=== PATIENT | female | born 1990 | race Caucasian/White ===

== ENCOUNTER → 2022-07-02 | Outpatient (CLI) | payer OTHER | LOC: LAB 16:39 | DX: R30.0 Dysuria (principal); N39.0 Urinary tract infection, site not specified ==

== ENCOUNTER → 2022-07-23 | Outpatient (CLI) | payer OTHER ==
[2022-07-23 09:54] LABS: BASO # 0.02 K/mm3 (0.02-0.10); EOS # 0.24 K/mm3 (0.04-0.40); EOS % 2.1 % (1.0-5.0); HEMATOCRIT 37.7 % (37.0-47.0); HEMOGLOBIN 12.9 g/dL (12.5-16.0); MEAN CELL VOLUME 88 fl (78-100); MEAN CORPUSCULAR HEMOGLOBIN 30 pg (27-31); MEAN CORPUSCULAR HGB CONC 34 g/dL (33-37); MEAN PLATELET VOLUME 9.8 fl (7.4-10.4); MONO # 0.79 K/mm3 (0.20-0.80); NEU # 9.04 K/mm3 (1.40-6.50); PLATELET COUNT 147 K/mm3 (130-400); RED BLOOD COUNT 4.28 M/mm3 (4.10-5.30); RED CELL DISTRIBUTION WIDTH 11.7 % (11.5-14.5); WHITE BLOOD COUNT 11.6 K/mm3 (4.8-10.8)
[2022-07-23 10:05] LABS: ALBUMIN 3.8 g/dL (3.5-5.0)
[2022-07-23 10:06] LABS: POTASSIUM 3.6 mmol/L (3.5-5.1)
[2022-07-23 10:07] LABS: CALCIUM 9.2 mg/dL (8.3-10.5)
[2022-07-23 10:08] LABS: TOTAL PROTEIN 6.4 g/dL (6.4-8.3)
[2022-07-23 10:10] LABS: TOTAL BILIRUBIN 0.4 mg/dL (0.2-1.2)
[2022-07-23 13:49] LABS: D-DIMER 13.95 mg/L FEU (0.15-0.50)
== END ==
LOC: LAB 09:30
PROVIDERS: Physician Assistant
DX: M79.605 Pain in left leg (principal); Z86.718 Personal history of other venous thrombosis and embolism; Z86.711 Personal history of pulmonary embolism; Z33.1 Pregnant state, incidental